=== PATIENT | female | born 1985 | race Caucasian/White ===

== ENCOUNTER 2018-06-24 22:14 | Observation (INO) | payer OTHER, SELFPAY ==
[2018-06-24 22:16] VITALS: BP 139/92; PULSE 110; RESP 17; TEMP 35.3; O2SAT 99; BMI 29.5
[2018-06-24 22:24] VITALS: BP 130/104; PULSE 106; RESP 15; O2SAT 98
[2018-06-24] MEDS: Ketorolac 30 MG/ML Syringe IV (22:50)
[2018-06-24] MEDS: 0.9% Normal Saline 1,000 ML 999 ML IV (22:51)
[2018-06-24] MEDS: Dihydroergotamine 1 MG/ML Ampul IV (22:52)
[2018-06-24] MEDS: proMETHazine 25 MG/ML Syringe 12.5 MG IV (23:12)
--- NOTE | 2018-06-24 23:44 | ED.VISSUMM ---
- ER Visit Summary Date of Service: 06/24/18 Chief Complaint: Headache History of Present Illness: The patient is a 32 F who presents with headache. She has a history of migraines. She has previously seen neurology but recently moved [place]. She has injectable Phenergan as well as Imitrex at home. Her current migraine began about 6 days ago. It was gradual onset. She rates it as 10 out of 10 but then comments that this is not the worst headache she has had that she has had worse headaches. This is typical in character and location to previous migraines. She reports aura. She has had some nausea and vomiting. No head injury. No fever. No neck pain. She was seen at another emergency department 2 days ago treated with Toradol Benadryl Phenergan. She states she had mild improvement was discharged but her headache quickly returned to its current severity. Physical Examination: Heart rate 110 vitals otherwise normal Patient sitting in a darkened room wearing sunglasses. Neck is supple, no meningismus Heart is regular rhythm tachycardia Lungs are clear Abdomen soft Alert and oriented with no focal or lateralizing neurological deficits, normal strength normal sensation Pupils equally round reactive to light Test Results: Not indicated Emergency Department Course and Treatment: She reports that this is similar to previous migraines typical in character and location. I do not believe any further diagnostic workup is necessary at this time. She was given IV Toradol, DHE, Decadron. She reported no change in symptoms and ongoing nausea. She was given IV Phenergan. On reevaluation she still continues to have severe headache without any change. I have ordered IV valproic acid. Treatment Plan: [] Disposition: Admit Impression: Intractable migraine This note was generated with [employer] dictation software. It may contain incorrect words, spelling, and punctuation that were not noted in review of the chart prior to signing ED Disposition - Plan for ED Patient: Referrals: Care Physician,No Primary [Primary Care Provider] -
--- NOTE | 2018-06-24 23:45 | HP.PCM_ITS ---
Problem List (1) Intractable migraine Status: Acute History of Present Illness Date of Admission: 06/24/18 Chief Complaint: headache The patient is a 32 year old F with a significant history of hypertension; depression; anxiety and migraine who presented with bilateral persistent temporal headache x 6 days. Associated with her symptoms is photophobia, phonophobia and aura. She reported she has aura at the right eye. Further she has nausea and vomiting. She tried home Phenergan injection; ibuprofen and Imitrex injection without any relief. She was at [facility] 2 nights ago where she was given Phenergan, Benadryl, Toradol and IV fluids but it did not help improve her symptoms. Patient reported that she use to see a neurologist at [place] but she moved to our area recently and has not seen the a neurologist or PCP yet.. She reported that previously a combination of Phenergan; Decadron, Depakote and Dilaudid helped her symptoms. She is allergic to Compazine, Reglan and morphine. At the emergency department patient received Decadron, dihydroergotamine; IV fluids and Toradol. At time of evaluation patient was having an infusion of Valproic acid running; she reported headache of 10 out of 10. She reported that she is to take propranolol for hypertension and migraine prophylaxis but she ran out of her medication and she does not have any prescription at this time. Also she does take Effexor for depression but again she has run out of her prescriptions. Past Medical History Medical History: Medical History (Last Updated 06/25/18 @ 01:01 by Stu Workman MD) Migraine G43.909 Allergies bee venom protein (honey bee) Allergy (Verified 06/24/18 22:16) Anaphylaxis ciprofloxacin [From Cipro] Allergy (Verified 06/24/18 22:16) Hives metoclopramide [From Reglan] Allergy (Verified 06/24/18 22:16) Hives morphine Allergy (Verified 06/24/18 22:16) Hives Penicillins [PCN] Allergy (Verified 06/24/18 22:16) Hives prochlorperazine [From Compazine] Allergy (Verified 06/24/18 22:16) Hives vancomycin Allergy (Verified 06/24/18 22:16) Hives Home Medications: Ambulatory Orders Medication Instructions Recorded Estradiol [Estrace] 2 mg PO DAILY 06/24/18 Ibuprofen [Motrin] 800 mg PO TID PRN PRN 06/25/18 Promethazine HCl [Phenergan] 25 mg IM Q6H PRN PRN 06/25/18 Propanolol 160 mg PO DAILY 06/25/18 Sumatriptan Succinate [Imitrex] 0.06 mg SQ Q12H PRN PRN 06/25/18 Tizanidine HCl 6 mg PO Q6H PRN PRN 06/25/18 Venlafaxine XR [Effexor Xr] 450 mg PO DAILY 06/25/18 proMETHazine tablet [Phenergan 25 mg PO Q6H PRN PRN 06/25/18 tablet] Surgical History: appendectomy, cholecystectomy, hysterectomy, tonsillectomy, - - Ulnar nerve surgery Psychiatric History: Anxiety, Depression Lives: With Family Smoking Status: Current every day smoker Tobacco Use: Cigarettes Alcohol: None - *Family History Maternal History Items: Cancer, Heart Disease, Seizures Paternal History Items: Diabetes, Heart Disease Review of Systems Constitutional: Denies: Chills, Fever, Weight Change HEENT: Reports: Head Aches. Denies: Sinus Congestion, Sinus Drainage Cardiovascular: Denies: Chest Pain, Palpitations Respiratory: Denies: Cough, Shortness of breath at rest, Sputum production Gastrointestinal: Reports: Nausea, Vomiting. Denies: Abdominal Pain Genitourinary: Denies: Dysuria Musculoskeletal: Denies: Joint Pain, Joint Tenderness Skin: Denies: Rash, Wounds Neurological: Denies: Numbness, Tingling, Focal weakness Psychiatric: Denies: Anxiety, Depression, Homicidal Ideations, Suicidal Ideations Hematologic/ Lymphatic: Denies: Easy Bruising, Easy Bleeding VTE Information - Inpt Only VTE Present on Admission: No VTE Mechan Device Prophylaxis: None VTE Pharm Prophylaxis ordered?: Yes Patient Problems: Active and Suspected Problems (Last Updated 06/25/18 @ 01:01 by Stu Workman MD) Intractable migraine (Acute) - Physical Exam General: Alert, Oriented x3, Cooperative HEENT: Atraumatic, PERRLA, EOMI, Normocephalic Neck: Supple, No JVD, Negative Carotid Bruits Lungs: Clear to auscultation, Normal air movement Cardiovascular: Regular rate, No murmurs Abdomen: Bowel Sounds Present, Soft, Non Tender Extremities: No edema, Capillary Refill Less than 3 Seconds Skin: No rashes, No breakdown Musculoskeletal: No Tenderness to Palpation of Joints or Extremities Neurological: Neuro grossly intact Psych/Mental Status: Normal Affect, Appropriate Vital Signs Temp Pulse Resp BP Pulse Ox 95.5 F L 106 H 15 130/104 H 98 06/24/18 22:16 06/24/18 22:24 06/24/18 22:24 06/24/18 22:24 06/24/18 22:24 Oxygen Delivery Method Room Air Weight: 73.301 kg Body Mass Index (BMI) 29.5 Assessment/Plan All Active Problems (Last Updated 06/25/18 @ 01:01 by Stu Workman MD) Intractable migraine (Acute) The patient is a 32 year old F with a significant history of hypertension; depression; anxiety and migraine who presented with bilateral persistent temporal headache times 6 days. Associated with her symptoms is photophobia, phonophobia and aura headache consistent with intractable migraine. Intractable migraine. Received Decadron Dihydroergotamine, Toradol, Phenergan, IV fluids and valproic acid in the emergency department. Maxalt ordered IV Zofran and Phenergan PRN. At the [facility] nurse report that patient still ahs no relief after completion of Valproic acid infusion; and after Maxalt dose. Toradol prn ordered. Ordered medications that may be considered includes Phenytoin; Keppra; Lacosamide and Decadron. Consider neurology consult if her migraine persists. Depression Patient reported that she was taking Effexor for 450 mg daily. We will re-start her on Effexor 100 mg twice daily for now. HTN Blood pressure is not within goal. Reported takes Propranolol 160mg daily which she run out. Will re-start her on propranolol 80mg daily. Tobacco abuse Counseled Declined nicotine patch. DVT prophylaxis In the setting of patient on estradiol we will put her on scheduled Lovenox while inpatient. Code Visit OBSV E&M: 35162 Initial observation care L3
[2018-06-24 23:59] VITALS: BP 120/78; PULSE 78; RESP 14; O2SAT 97
[2018-06-25 00:45] VITALS: BMI 30.4
[2018-06-25 00:47] VITALS: BP 120/77; PULSE 73; RESP 16; TEMP 36.9; O2SAT 96
[2018-06-25 00:55] LABS: Hematocrit 42.8 % (37-47); Hemoglobin 13.8 g/dl (12.0-15.0); Mean Corp Hgb Conc 32.2 g/gl (32-36); Mean Corpuscular Hgb 30.6 pg (27.0-32.0); Mean Corpuscular Volume 94.9 fL (81-99); Mean Platelet Vol. 10.2 fl (6.2-12.0); Platelet Count 249 K/mm3 (150-450); RBC Distribution Width CV 12.8 % (11.6-14.6); RBC Distribution Width SD 44.6 fl (35.1-43.9); Red Blood Count 4.51 M/mm3 (4.2-5.4); Scan Indicated on CBC? Y/N NO; White Blood Count 5.4 K/mm3 (4.4-11.0)
[2018-06-25 01:03] LABS: Anion Gap 7 (5-15); BUN 8 mg/dL (7-18); BUN/Creat Ratio 9.2 RATIO (10-20); Calcium,Total 8.6 mg/dL (8.5-10.1); Chloride 111 mmol/L (98-107); Creatinine, Serum 0.87 mg/dL (0.55-1.02); EST Glomerular Filtration Rate 79 mL/min (>60); Est Glom Filt Rate - Afr Amer 96 mL/min (>60); Estimated Creatinine Clearance 72.06 ml/min; Glucose 76 mg/dL (74-106); Potassium 3.5 mmol/L (3.5-5.1); Sodium Level 140 mmol/L (136-145)
[2018-06-25] MEDS: 0.9% NaCl Peripheral Flush Adult/Peds IV ×7 (01:16→17:35)
[2018-06-25] MEDS: Ondansetron 4 MG/2 ML Vial IV (01:18)
[2018-06-25] MEDS: Rizatriptan Benzoate 10 MG Tablet PO (01:53)
[2018-06-25] MEDS: proMETHazine 25 MG/ML Syringe 6.25 MG IV ×2 (05:30→11:40)
[2018-06-25] MEDS: Ketorolac 30 MG/ML Syringe IV ×2 (06:52→22:02)
--- NOTE | 2018-06-25 07:15 | NURSING ---
Rica GRAHAM aware that Inderal was a new order and med had not yet come to floor to be administered.
[2018-06-25 08:56] VITALS: BP 113/65; PULSE 99; RESP 18; TEMP 37.1; O2SAT 98
[2018-06-25] MEDS: Propranolol LA 80 MG Capsule PO ×2 (09:08→17:38)
[2018-06-25 11:38] VITALS: BP 123/86; PULSE 75; RESP 18; TEMP 36.9; O2SAT 98
[2018-06-25] MEDS: Enoxaparin 40 MG/0.4 ML Syringe SC (11:39)
[2018-06-25] MEDS: HYDROmorphone 1 MG/ML Syringe IV ×3 (11:41→22:02)
[2018-06-25 15:54] VITALS: BP 106/76; PULSE 80; RESP 18; TEMP 36.4; O2SAT 96
[2018-06-25] MEDS: 0.9% Normal Saline 1,000 ML 125 ML IV (17:26)
[2018-06-25] MEDS: proMETHazine 25 MG/ML Syringe IV (17:30)
[2018-06-25] MEDS: Estradiol 1 MG Tablet 2 MG PO (17:38)
[2018-06-25] MEDS: Venlafaxine XR 150 MG Capsule 300 MG PO (17:39)
--- NOTE | 2018-06-25 19:47 | PN_ITS ---
Patient Problems: Active and Suspected Problems (Last Updated 06/25/18 @ 01:01 by Stu Workman MD) Intractable migraine (Acute) Subjective: Patient was seen and examined this afternoon, I talked with her who is in the room also. Patient states that her headache is an 8 out of 10 in intensity with 10 being the highest intensity. Patient does not appear to be in any distress at the moment I am talking with her, she showed me on her cell phone what regimen she has been on in the past for acute migraines, some regime ns included IV Phenergan, ketamine, and IV Dilaudid. Today I placed the patient on IV Decadron, IV Dilaudid, and I added IV Phenergan program today. Patient states that she has been on many medications over the years for chronic migraines, she states that Neurontin did not work for her migraines, she stated that Lyrica caused weight gain, she said that Depakote did not work, Topamax did not work, she stated that initially Botox injections worked but then lost its effectiveness, she has also been on the newer agents - calcitonin gene related peptide monoclonal antibodies. She does not have a primary care doctor, she would like to hold off seeing a neurologist at this time until she can find a primary care doctor. - Physical Exam General: Alert, Oriented x3, Cooperative, No apparent distress, Well developed HEENT: Atraumatic, PERRLA, EOMI, Normocephalic Oral: Moist Mucosa Neck: Supple, No Nuchal Rigidity, Trachea Midline, Thyroid Normal Size and Texture Lungs: Clear to auscultation, Normal air movement, No rhonchi, No wheeze, No rales Cardiovascular: Regular rate, Regular Rhythm, Normal S1, Normal S2, No murmurs, No Ectopic Activity Abdomen: Bowel Sounds Present, Soft, Non Tender, Non-Distended, No hernias noted Extremities: No clubbing, No cyanosis, No edema, Capillary Refill Less than 3 Seconds Skin: No rashes, No breakdown Musculoskeletal: No Tenderness to Palpation of Joints or Extremities Neurological: Cranial nerves II-XII grossly intact, Neuro grossly intact, Sensory exam intact to light touch and pain, Coordination normal Psych/Mental Status: Normal Affect, Appropriate, Alert and oriented to time, place, person, mood and affect Vital Signs Temp Pulse Resp BP Pulse Ox 97.6 F L 80 18 106/76 96 02/19/19 15:54 06/25/18 15:54 06/25/18 15:54 06/25/18 15:54 06/25/18 15:54 Oxygen Delivery Method Room Air Weight: 75.5 kg Body Mass Index (BMI) 30.4 Intake and Output for Last 24 Hours 06/23/18 06/24/18 06/25/18 23:59 23:59 23:59 Intake Total 120 / 120 Balance 120 / 120 Laboratory Tests Past 24 Hrs 06/24/18 06/24/18 22:45 22:45 WBC 5.4 RBC 4.51 Hgb 13.8 Hct 42.8 MCV 94.9 MCH 30.6 MCHC 32.2 RDW 12.8 RDW Differential 44.6 H Plt Count 249 MPV 10.2 Sodium 140 Potassium 3.5 Chloride 111 H Carbon Dioxide 22.0 Anion Gap 7 BUN 8 Creatinine 0.87 Estim Creat Clear Calc 72.06 Est GFR (MDRD) Af Amer 96 Est GFR (MDRD) Non-Af 79 BUN/Creatinine Ratio 9.2 L Glucose 76 Calcium 8.6 Medical Necessity - Tobacco Use Smoking Status: Current every day smoker Tobacco Use: Cigarettes Assessment/Plan All Active Problems (Last Updated 06/25/18 @ 01:01 by Stu Workman MD) Intractable migraine (Acute) #1 acute intractable migraine-again patient was placed on programmed IV Phenergan today, IV Decadron, p.o. Inderal LA, and IV Dilaudid. I also placed the patient on IV fluids due to her poor oral intake. I will reassess the patient tomorrow, I told her she may need to see neurology here if she does not improve on present treatment. Code Visit OBSV E&M: 51213 Subsequent observation care L3
[2018-06-25 21:45] VITALS: BP 126/67; PULSE 90; RESP 16; TEMP 36.8; O2SAT 98
[2018-06-26] MEDS: proMETHazine 25 MG/ML Syringe IV ×5 (00:11→23:32)
[2018-06-26] MEDS: 0.9% Normal Saline 1,000 ML 125 ML IV ×4 (00:15→23:25)
[2018-06-26] MEDS: HYDROmorphone 1 MG/ML Syringe IV ×5 (02:48→20:57)
[2018-06-26 03:45] VITALS: BP 121/68; PULSE 80; RESP 16; TEMP 36.7; O2SAT 97
[2018-06-26] MEDS: Ketorolac 30 MG/ML Syringe IV (06:06)
[2018-06-26 09:54] VITALS: BP 123/67; PULSE 79; RESP 16; TEMP 36.3; O2SAT 98
[2018-06-26] MEDS: Ondansetron 4 MG/2 ML Vial IV (10:05)
[2018-06-26] MEDS: 0.9% NaCl Peripheral Flush Adult/Peds IV ×6 (10:05→23:31)
[2018-06-26] MEDS: Enoxaparin 40 MG/0.4 ML Syringe SC (11:15)
[2018-06-26] MEDS: Propranolol LA 60 MG Capsule 120 MG PO (11:16)
[2018-06-26] MEDS: Estradiol 1 MG Tablet 2 MG PO (11:16)
[2018-06-26] MEDS: Venlafaxine XR 150 MG Capsule 450 MG PO (11:16)
--- NOTE | 2018-06-26 11:22 | PCM.CONS.GEN ---
Reason for Consult Date of Consultation: 06/26/18 Reason for Consultation: STATUS MIGRANOSUS History of Present Illness: The patient is a 32 year old female with long complicated history of status migranosus treated in [place] by dr arceo and prior to that at [facility]. reports last hospitalization was june, reports at that time versed worked best according to her. moved to [place] one month ago and admits to increased stress. has been given a number of meds including stadol, intermittent ketamine infusion, nubain. currently has no doctor apparently to prescribe meds. has been on aimovig which caused worsening of underlying insomnia. was given DHE in the er to no benefit. also using imitrex and phenergan currently. current headache 01/14, typical for her including right visual aura, normal. ran out of effexor and propranolol 3 weeks ago. now restarted. med failures: wellbutrin depakote topamax aimovig gabapentin lyrica compazine reglan botox imitrex maxalt zomig seroquel fiorecet elavil pamelor in pts opinion, meds that help include dilaudid, decadron, phenergan, then second round nubain, ketamine. per admit note:The patient is a 32 year old F with a significant history of hypertension; depression; anxiety and migraine who presented with bilateral persistent temporal headache x 6 days. Associated with her symptoms is photophobia, phonophobia and aura. She reported she has aura at the right eye. Further she has nausea and vomiting. She tried home Phenergan injection; ibuprofen and Imitrex injection without any relief. She was at [facility] 2 nights ago where she was given Phenergan, Benadryl, Toradol and IV fluids but it did not help improve her symptoms. Patient reported that she use to see a neurologist at [place] but she moved to our area recently and has not seen the a neurologist or PCP yet.. She reported that previously a combination of Phenergan; Decadron, Depakote and Dilaudid helped her symptoms. She is allergic to Compazine, Reglan and morphine. At the emergency department patient received Decadron, dihydroergotamine; IV fluids and Toradol. At time of evaluation patient was having an infusion of Valproic acid running; she reported headache of 10 out of 10. She reported that she is to take propranolol for hypertension and migraine prophylaxis but she ran out of her medication and she does not have any prescription at this time. Also she does take Effexor for depression but again she has run out of her prescriptions. Past Medical History Medical History: Medical History (Last Updated 06/25/18 @ 01:01 by Stu Workman MD) Migraine G43.909 Allergies bee venom protein (honey bee) Allergy (Verified 06/24/18 22:16) Anaphylaxis ciprofloxacin [From Cipro] Allergy (Verified 06/24/18 22:16) Hives metoclopramide [From Reglan] Allergy (Verified 06/24/18 22:16) Hives morphine Allergy (Verified 06/24/18 22:16) Hives Penicillins [PCN] Allergy (Verified 06/24/18 22:16) Hives prochlorperazine [From Compazine] Allergy (Verified 06/24/18 22:16) Hives vancomycin Allergy (Verified 06/24/18 22:16) Hives Home Medications: Ambulatory Orders Medication Instructions Recorded Estradiol [Estrace] 2 mg PO DAILY 06/24/18 Ibuprofen [Motrin] 800 mg PO TID PRN PRN 06/25/18 Promethazine HCl [Phenergan] 25 mg IM Q6H PRN PRN 06/25/18 Propanolol 160 mg PO DAILY 06/25/18 Sumatriptan Succinate [Imitrex] 0.06 mg SQ Q12H PRN PRN 06/25/18 Tizanidine HCl 6 mg PO Q6H PRN PRN 06/25/18 Venlafaxine XR [Effexor Xr] 450 mg PO DAILY 06/25/18 proMETHazine tablet [Phenergan 25 mg PO Q6H PRN PRN 06/25/18 tablet] Surgical History: appendectomy, cholecystectomy, hysterectomy, tonsillectomy, - - Ulnar nerve surgery Psychiatric History: Anxiety, Depression Lives: With Family Smoking Status: Current every day smoker Tobacco Use: Cigarettes Alcohol: None - *Family History Maternal History Items: Cancer, Heart Disease, Seizures Paternal History Items: Diabetes, Heart Disease Review of Systems Constitutional: Denies: Chills, Fever, Weight Change HEENT: Denies: Head Aches, Sinus Congestion, Sinus Drainage Cardiovascular: Denies: Chest Pain, Palpitations Respiratory: Denies: Cough, Shortness of breath at rest, Sputum production Gastrointestinal: Denies: Abdominal Pain, Nausea, Vomiting Genitourinary: Denies: Dysuria Musculoskeletal: Denies: Joint Pain, Joint Tenderness Neurological: Reports: Headaches Psychiatric: Reports: Anxiety, Depression Patient Problems: Active and Suspected Problems (Last Updated 06/25/18 @ 01:01 by Stu Workman MD) Intractable migraine (Acute) - Physical Exam General: Alert, Oriented x3, Cooperative, No apparent distress HEENT: Atraumatic, PERRLA, EOMI Neurological: Cranial nerves II-XII grossly intact Psych/Mental Status: Normal Affect Vital Signs Temp Pulse Resp BP Pulse Ox 36.3 C L 79 16 123/67 H 98 06/26/18 09:54 06/26/18 09:54 06/26/18 09:54 06/26/18 09:54 06/26/18 09:54 Oxygen Delivery Method Room Air Weight: 75.5 kg Body Mass Index (BMI) 30.4 Intake and Output for Last 24 Hours 06/24/18 06/25/18 06/26/18 23:59 23:59 23:59 Intake Total 1150 / 1150 844 / 844 Output Total 500 / 500 Balance 1150 / 1150 344 / 344 Current Home Med List Medication Instructions Recorded Confirmed Type Estradiol [Estrace] 2 mg PO DAILY 06/24/18 06/25/18 History Ibuprofen [Motrin] 800 mg PO TID PRN PRN 06/25/18 06/25/18 History Promethazine HCl [Phenergan] 25 mg IM Q6H PRN PRN 06/25/18 06/25/18 History Propanolol 160 mg PO DAILY 06/25/18 06/25/18 History Sumatriptan Succinate [Imitrex] 0.06 mg SQ Q12H PRN PRN 06/25/18 06/25/18 History Tizanidine HCl 6 mg PO Q6H PRN PRN 06/25/18 06/25/18 History Venlafaxine XR [Effexor Xr] 450 mg PO DAILY 06/25/18 06/25/18 History proMETHazine tablet [Phenergan 25 mg PO Q6H PRN PRN 06/25/18 06/25/18 History tablet] Current Medications Generic Name Dose Route Start Last Admin Trade Name Freq PRN Reason Stop Dose Admin Dexamethasone Sodium Phosphate 4 mg 06/25/18 12:00 06/26/18 11:15 Decadron IV 4 mg Q6 ED Administration Enoxaparin Sodium 40 mg 06/25/18 10:00 06/26/18 11:15 Lovenox SC 40 mg DAILY@1000 ED Administration Estradiol 2 mg 06/25/18 10:00 06/26/18 11:16 Estrace (G) PO 2 mg DAILY COUNTS INCLUDE 234 BEDS AT THE [facility] Administration Hydromorphone HCl 1 mg 06/25/18 07:37 06/26/18 11:15 Dilaudid Inj IV 1 mg Q4H PRN PRN Administration HEADACHE Sodium Chloride 1,000 mls @ 125 mls/hr 06/25/18 16:05 06/26/18 07:43 IV 125 mls/hr .Q8H COUNTS INCLUDE 234 BEDS AT THE [facility] Administration Ketorolac Tromethamine 30 mg 06/25/18 06:00 06/26/18 06:06 Toradol IV 06/30/18 06:01 30 mg Q6H PRN PRN Administration PAIN Magnesium Hydroxide 30 ml 06/25/18 00:44 Milk Of Magnesia PO DAILY PRN PRN Constipation Nutritional Formula (Lactose Free) 120 ml 06/25/18 10:00 06/26/18 09:56 Ensure Enlive PO Not Given 4X/DAY COUNTS INCLUDE 234 BEDS AT THE [facility] Ondansetron HCl 4 mg 06/25/18 00:44 06/26/18 10:05 Zofran IV 4 mg Q8H PRN PRN Administration NAUSEA Promethazine HCl 25 mg 06/25/18 18:00 06/26/18 11:16 Phenergan IV 25 mg Q6 COUNTS INCLUDE 234 BEDS AT THE [facility] Administration Propranolol HCl 120 mg 06/26/18 10:00 06/26/18 11:16 Inderal La PO 120 mg DAILY COUNTS INCLUDE 234 BEDS AT THE [facility] Administration Rizatriptan Benzoate 10 mg 06/25/18 00:57 06/25/18 01:53 Maxalt PO 10 mg .[X1 PRN] PRN Administration MIGRAINE SYMPTOMS Sodium Chloride 5 - 15 ml 06/25/18 01:00 06/26/18 10:05 IV 10 ml UD PRN Administration SALINE FLUSH Venlafaxine HCl 450 mg 06/26/18 10:00 06/26/18 11:16 Effexor Xr PO 450 mg DAILY ED Administration Assessment/Plan All Active Problems (Last Updated 06/25/18 @ 01:01 by Stu Workman MD) Intractable migraine (Acute) status migranosus: mult med failures, pt insists narcotics, benzos work. stress and insomnia clearly a component. rec consult pain management dc when headache manageable so that she can follow with her outpt headache specialist in [place] avoid dhe within 24hrs of triptans continue steroids
--- NOTE | 2018-06-26 11:30 | CON.PCM_ITS ---
Reason for Consult Date of Consultation: 06/26/18 Reason for Consultation: STATUS MIGRANOSUS History of Present Illness: The patient is a 32 year old female with long complicated history of status migranosus treated in [place] by dr arceo and prior to that at [facility]. reports last hospitalization was june, reports at that time versed worked best according to her. moved to [place] one month ago and admits to increased stress. has been given a number of meds including stadol, intermittent ketamine infusion, nubain. currently has no doctor apparently to prescribe meds. has been on aimovig which caused worsening of underlying insomnia. was given DHE in the er to no benefit. also using imitrex and phenergan currently. current headache 01/14, typical for her including right visual aura, normal. ran out of effexor and propranolol 3 weeks ago. now restarted. med failures: wellbutrin depakote topamax aimovig gabapentin lyrica compazine reglan botox imitrex maxalt zomig seroquel fiorecet elavil pamelor in pts opinion, meds that help include dilaudid, decadron, phenergan, then second round nubain, ketamine. per admit note:The patient is a 32 year old F with a significant history of hypertension; depression; anxiety and migraine who presented with bilateral persistent temporal headache x 6 days. Associated with her symptoms is photophobia, phonophobia and aura. She reported she has aura at the right eye. Further she has nausea and vomiting. She tried home Phenergan injection; ibuprofen and Imitrex injection without any relief. She was at [facility] 2 nights ago where she was given Phenergan, Benadryl, Toradol and IV fluids but it did not help improve her symptoms. Patient reported that she use to see a neurologist at [place] but she moved to our area recently and has not seen the a neurologist or PCP yet.. She reported that previously a combination of Phenergan; Decadron, Depakote and Dilaudid helped her symptoms. She is allergic to Compazine, Reglan and morphine. At the emergency department patient received Decadron, dihydroergotamine; IV fluids and Toradol. At time of evaluation patient was having an infusion of Valproic acid running; she reported headache of 10 out of 10. She reported that she is to take propranolol for hypertension and migraine prophylaxis but she ran out of her medication and she does not have any prescription at this time. Also she does take Effexor for depression but again she has run out of her prescriptions. Past Medical History Medical History: Medical History (Last Updated 06/25/18 @ 01:01 by Stu Workman MD) Migraine G43.909 Allergies bee venom protein (honey bee) Allergy (Verified 06/24/18 22:16) Anaphylaxis ciprofloxacin [From Cipro] Allergy (Verified 06/24/18 22:16) Hives metoclopramide [From Reglan] Allergy (Verified 06/24/18 22:16) Hives morphine Allergy (Verified 06/24/18 22:16) Hives Penicillins [PCN] Allergy (Verified 06/24/18 22:16) Hives prochlorperazine [From Compazine] Allergy (Verified 06/24/18 22:16) Hives vancomycin Allergy (Verified 06/24/18 22:16) Hives Home Medications: Ambulatory Orders Medication Instructions Recorded Estradiol [Estrace] 2 mg PO DAILY 06/24/18 Ibuprofen [Motrin] 800 mg PO TID PRN PRN 06/25/18 Promethazine HCl [Phenergan] 25 mg IM Q6H PRN PRN 06/25/18 Propanolol 160 mg PO DAILY 06/25/18 Sumatriptan Succinate [Imitrex] 0.06 mg SQ Q12H PRN PRN 06/25/18 Tizanidine HCl 6 mg PO Q6H PRN PRN 06/25/18 Venlafaxine XR [Effexor Xr] 450 mg PO DAILY 06/25/18 proMETHazine tablet [Phenergan 25 mg PO Q6H PRN PRN 06/25/18 tablet] Surgical History: appendectomy, cholecystectomy, hysterectomy, tonsillectomy, - - Ulnar nerve surgery Psychiatric History: Anxiety, Depression Lives: With Family Smoking Status: Current every day smoker Tobacco Use: Cigarettes Alcohol: None - *Family History Maternal History Items: Cancer, Heart Disease, Seizures Paternal History Items: Diabetes, Heart Disease Review of Systems Constitutional: Denies: Chills, Fever, Weight Change HEENT: Denies: Head Aches, Sinus Congestion, Sinus Drainage Cardiovascular: Denies: Chest Pain, Palpitations Respiratory: Denies: Cough, Shortness of breath at rest, Sputum production Gastrointestinal: Denies: Abdominal Pain, Nausea, Vomiting Genitourinary: Denies: Dysuria Musculoskeletal: Denies: Joint Pain, Joint Tenderness Neurological: Reports: Headaches Psychiatric: Reports: Anxiety, Depression Patient Problems: Active and Suspected Problems (Last Updated 06/25/18 @ 01:01 by Stu Workman MD) Intractable migraine (Acute) - Physical Exam General: Alert, Oriented x3, Cooperative, No apparent distress HEENT: Atraumatic, PERRLA, EOMI Neurological: Cranial nerves II-XII grossly intact Psych/Mental Status: Normal Affect Vital Signs Temp Pulse Resp BP Pulse Ox 36.3 C L 79 16 123/67 H 98 06/26/18 09:54 06/26/18 09:54 06/26/18 09:54 06/26/18 09:54 06/26/18 09:54 Oxygen Delivery Method Room Air Weight: 75.5 kg Body Mass Index (BMI) 30.4 Intake and Output for Last 24 Hours 06/24/18 06/25/18 06/26/18 23:59 23:59 23:59 Intake Total 1150 / 1150 844 / 844 Output Total 500 / 500 Balance 1150 / 1150 344 / 344 Current Home Med List Medication Instructions Recorded Confirmed Type Estradiol [Estrace] 2 mg PO DAILY 06/24/18 06/25/18 History Ibuprofen [Motrin] 800 mg PO TID PRN PRN 06/25/18 06/25/18 History Promethazine HCl [Phenergan] 25 mg IM Q6H PRN PRN 06/25/18 06/25/18 History Propanolol 160 mg PO DAILY 06/25/18 06/25/18 History Sumatriptan Succinate [Imitrex] 0.06 mg SQ Q12H PRN PRN 06/25/18 06/25/18 History Tizanidine HCl 6 mg PO Q6H PRN PRN 06/25/18 06/25/18 History Venlafaxine XR [Effexor Xr] 450 mg PO DAILY 06/25/18 06/25/18 History proMETHazine tablet [Phenergan 25 mg PO Q6H PRN PRN 06/25/18 06/25/18 History tablet] Current Medications Generic Name Dose Route Start Last Admin Trade Name Freq PRN Reason Stop Dose Admin Dexamethasone Sodium Phosphate 4 mg 06/25/18 12:00 06/26/18 11:15 Decadron IV 4 mg Q6 ED Administration Enoxaparin Sodium 40 mg 06/25/18 10:00 06/26/18 11:15 Lovenox SC 40 mg DAILY@1000 ED Administration Estradiol 2 mg 06/25/18 10:00 06/26/18 11:16 Estrace (G) PO 2 mg DAILY [facility] Administration Hydromorphone HCl 1 mg 06/25/18 07:37 06/26/18 11:15 Dilaudid Inj IV 1 mg Q4H PRN PRN Administration HEADACHE Sodium Chloride 1,000 mls @ 125 mls/hr 06/25/18 16:05 06/26/18 07:43 IV 125 mls/hr .Q8H [facility] Administration Ketorolac Tromethamine 30 mg 06/25/18 06:00 06/26/18 06:06 Toradol IV 06/30/18 06:01 30 mg Q6H PRN PRN Administration PAIN Magnesium Hydroxide 30 ml 06/25/18 00:44 Milk Of Magnesia PO DAILY PRN PRN Constipation Nutritional Formula (Lactose Free) 120 ml 06/25/18 10:00 06/26/18 09:56 Ensure Enlive PO Not Given 4X/DAY [facility] Ondansetron HCl 4 mg 06/25/18 00:44 06/26/18 10:05 Zofran IV 4 mg Q8H PRN PRN Administration NAUSEA Promethazine HCl 25 mg 06/25/18 18:00 06/26/18 11:16 Phenergan IV 25 mg Q6 [facility] Administration Propranolol HCl 120 mg 06/26/18 10:00 06/26/18 11:16 Inderal La PO 120 mg DAILY [facility] Administration Rizatriptan Benzoate 10 mg 06/25/18 00:57 06/25/18 01:53 Maxalt PO 10 mg .[X1 PRN] PRN Administration MIGRAINE SYMPTOMS Sodium Chloride 5 - 15 ml 06/25/18 01:00 06/26/18 10:05 IV 10 ml UD PRN Administration SALINE FLUSH Venlafaxine HCl 450 mg 06/26/18 10:00 06/26/18 11:16 Effexor Xr PO 450 mg DAILY ED Administration Assessment/Plan All Active Problems (Last Updated 06/25/18 @ 01:01 by Stu Workman MD) Intractable migraine (Acute) status migranosus: mult med failures, pt insists narcotics, benzos work. stress and insomnia clearly a component. rec consult pain management dc when headache manageable so that she can follow with her outpt headache specialist in [place] avoid dhe within 24hrs of triptans continue steroids
[2018-06-26 14:51] VITALS: BP 124/82; PULSE 82; RESP 14; TEMP 36.7; O2SAT 96
--- NOTE | 2018-06-26 19:44 | PCM.PROGNOTE ---
Subjective: Patient was seen and examined today, earlier this morning her headache was still a 7 out of 10, I had neurology see the patient and they did not have anything substantial to add and recommended continuing her present medications, they recommended possibly pain management for a nerve block-patient refused at this time and would like to continue her present medications. - Physical Exam General: Alert, Oriented x3, Cooperative, No apparent distress, Well developed HEENT: Atraumatic, PERRLA, EOMI, Normocephalic Oral: Moist Mucosa Neck: Supple, No JVD, No Nuchal Rigidity, Trachea Midline, Thyroid Normal Size and Texture Lungs: Clear to auscultation, Normal air movement, No rhonchi, No wheeze, No rales Cardiovascular: Regular rate, Regular Rhythm, Normal S1, Normal S2, No murmurs, No Ectopic Activity Abdomen: Bowel Sounds Present, Soft, Non Tender, Non-Distended Extremities: No clubbing, No cyanosis, No edema, Capillary Refill Less than 3 Seconds Skin: No rashes, No breakdown Musculoskeletal: No Tenderness to Palpation of Joints or Extremities Neurological: Cranial nerves II-XII grossly intact, Neuro grossly intact, Muscle tone normal, Sensory exam intact to light touch and pain Psych/Mental Status: Normal Affect, Appropriate, Alert and oriented to time, place, person, mood and affect Vital Signs Temp Pulse Resp BP Pulse Ox 98.1 F 82 14 124/82 H 96 06/26/18 14:51 06/26/18 14:51 06/26/18 14:51 06/26/18 14:51 06/26/18 14:51 Oxygen Delivery Method Room Air Weight: 75.5 kg Body Mass Index (BMI) 30.4 Intake and Output for Last 24 Hours 06/24/18 06/25/18 06/26/18 23:59 23:59 23:59 Intake Total 1150 / 1150 2539 / 2539 Output Total 2300 / 2300 Balance 1150 / 1150 239 / 239 Medical Necessity - Tobacco Use Smoking Status: Current every day smoker Tobacco Use: Cigarettes Assessment/Plan All Active Problems (Last Updated 06/25/18 @ 01:01 by Stu Workman MD) Intractable migraine (Acute) #1 acute intractable migraine-continue present medications, reevaluate patient tomorrow Code Visit OBSV E&M: 21925 Subsequent observation care L2
[2018-06-26 20:52] VITALS: BP 132/82; PULSE 79; RESP 16; TEMP 36.3; O2SAT 94
[2018-06-26] MEDS: DiphenhydrAMINE 25 MG Capsule 50 MG PO (20:56)
[2018-06-27 02:30] VITALS: BP 140/87; PULSE 72; RESP 16; TEMP 36.7; O2SAT 97
[2018-06-27] MEDS: 0.9% NaCl Peripheral Flush Adult/Peds IV ×4 (02:31→08:41)
[2018-06-27] MEDS: HYDROmorphone 1 MG/ML Syringe IV ×3 (02:32→10:58)
[2018-06-27] MEDS: proMETHazine 25 MG/ML Syringe IV (06:03)
[2018-06-27] MEDS: 0.9% Normal Saline 1,000 ML 125 ML IV (06:15)
[2018-06-27 08:30] VITALS: BP 146/93; PULSE 68; RESP 16; TEMP 36.4; O2SAT 98
[2018-06-27] MEDS: Estradiol 1 MG Tablet 2 MG PO (08:40)
[2018-06-27] MEDS: Venlafaxine XR 150 MG Capsule 450 MG PO (08:40)
[2018-06-27] MEDS: Propranolol LA 60 MG Capsule 120 MG PO (08:41)
[2018-06-27] MEDS: Ondansetron 4 MG/2 ML Vial IV (08:41)
[2018-06-27] MEDS: Enoxaparin 40 MG/0.4 ML Syringe SC (08:41)
--- NOTE | 2018-06-27 10:38 | DCINST_ITS ---
- Discharge Diagnoses Current Active Problems: Current Active and Chronic Problems (Last Updated 06/25/18 @ 01:01 by Stu Workman MD) Intractable migraine (Acute) You will use the following diet at home:: No restrictions Your liquids should be the consistency of: Regular/Thin Discharge Activity: Return to Normal Activity Weight Bearing Status: Full weight bearing Allergies/Adverse Reactions: Allergies bee venom protein (honey bee) Allergy (Verified 06/24/18 22:16) Anaphylaxis ciprofloxacin [From Cipro] Allergy (Verified 06/24/18 22:16) Hives metoclopramide [From Reglan] Allergy (Verified 06/24/18 22:16) Hives morphine Allergy (Verified 06/24/18 22:16) Hives Penicillins [PCN] Allergy (Verified 06/24/18 22:16) Hives prochlorperazine [From Compazine] Allergy (Verified 06/24/18 22:16) Hives vancomycin Allergy (Verified 06/24/18 22:16) Hives Medications to take at Discharge Estradiol [Estrace] 2 mg PO DAILY 06/24/18 Ibuprofen [Motrin] 800 mg PO TID PRN PRN 06/25/18 Promethazine HCl [Phenergan] 25 mg IM Q6H PRN PRN 06/25/18 Sumatriptan Succinate [Imitrex] 0.06 mg SQ Q12H PRN PRN 06/25/18 Tizanidine HCl 6 mg PO Q6H PRN PRN 06/25/18 Venlafaxine XR [Effexor Xr] 450 mg PO DAILY 06/25/18 proMETHazine tablet [Phenergan tablet] 25 mg PO Q6H PRN PRN 06/25/18 DiphenhydrAMINE [Benadryl] 50 mg PO Q6H PRN PRN capsule 06/27/18 HYDROmorphone tablet [Dilaudid] 1 - 1.5 mg PO Q6H PRN PRN #30 tablet 06/27/18 Prednisone 10 mg PO UD #30 tab 06/27/18 Propranolol HCl [Inderal LA (Beta Amanda)] 120 mg PO DAILY #60 capsule 06/27/18 Rizatriptan Benzoate [Maxalt] 10 mg PO .[X1 PRN] PRN tablet 06/27/18 Venlafaxine XR [Effexor Xr] 450 mg PO DAILY #90 capsule 06/27/18 The following prescriptions were given: HYDROmorphone tablet [Dilaudid] 1 - 1.5 mg PO Q6H PRN PRN #30 tablet PRN Reason: Migraine Symptoms Prednisone 10 mg PO UD #30 tab Propranolol HCl [Inderal LA (Beta Amanda)] 120 mg PO DAILY #60 capsule Venlafaxine XR [Effexor Xr] 450 mg PO DAILY #90 capsule Primary Care Physician: Care Physician,No Primary [Primary Care Provider] - Please follow up with your Primary Care Physician in: in 2-3 weeks Test Results: Test results from this visit will be discussed in further detail at your follow- up appointment, if applicable. Please Follow Up With: your neurologist in 5-7 days
--- NOTE | 2018-06-30 18:58 | PCM.DC.SUM ---
Discharge Date and Diagnosis Date of Admission: 06/24/18 Date of Discharge: 06/27/18 - Primary Discharge Diagnosis #1 acute intractable migraine Hospital Course and Treatment Operations: None Procedures: None Summary of Care Provided: The patient is a 32 year old F seen in the emergency room at [facility] with a chief complaint of intractable migraine headache. Patient has had a history of migraine headaches and was living down around [facility] and recently moved into [place]. She states she had been resistant to many migraine medications and sees a neurologist in [facility]. While in the emergency room, patient received several medications for acute migraine but her migraine headache persisted. Patient was placed and observation status on MedSurg 3, she was given IV Phenergan, IV Dilaudid, and IV Decadron. She was seen in consultation by neurology who did not have any additional medications to add to the patient's care. Patient's migraine improved while she was hospitalized. On 06/27/18, patient was seen and examined: Physical exam-on examination she appeared in good health and spirits. Vital signs as documented. Skin warm and dry and without overt rashes. Neck without JVD. Lungs clear. Heart exam notable for regular rhythm, normal sounds and absence of murmurs, rubs or gallops. Abdomen unremarkable and without evidence of organomegaly, masses, or abdominal aortic enlargement. Extremities nonedematous. Neuro: Cranial nerves II through XII are grossly intact, no focal motor deficits were noted, sensation to light touch and pinprick is intact. Psych: Patient is alert and oriented x3, she does not appear anxious or depressed On 06/27/18, patient was seen and examined and discharged to home in stable condition - Physical Exam Vital Signs Temp Pulse Resp BP Pulse Ox 97.5 F L 68 16 146/93 H 98 06/27/18 08:30 06/27/18 08:30 06/27/18 08:30 06/27/18 08:30 06/27/18 08:30 Oxygen Delivery Method Room Air Weight: 75.5 kg Body Mass Index (BMI) 30.4 Discharge Activity: Return to Normal Activity Weight Bearing Status: Full weight bearing Home Medications: Medications to take at Discharge Estradiol [Estrace] 2 mg PO DAILY 06/24/18 Ibuprofen [Motrin] 800 mg PO TID PRN PRN 06/25/18 Promethazine HCl [Phenergan] 25 mg IM Q6H PRN PRN 06/25/18 Sumatriptan Succinate [Imitrex] 0.06 mg SQ Q12H PRN PRN 06/25/18 Tizanidine HCl 6 mg PO Q6H PRN PRN 06/25/18 Venlafaxine XR [Effexor Xr] 450 mg PO DAILY 06/25/18 proMETHazine tablet [Phenergan tablet] 25 mg PO Q6H PRN PRN 06/25/18 DiphenhydrAMINE [Benadryl] 50 mg PO Q6H PRN PRN capsule 06/27/18 HYDROmorphone tablet [Dilaudid] 1 - 1.5 mg PO Q6H PRN PRN #30 tablet 06/27/18 Prednisone 10 mg PO UD #30 tab 06/27/18 Propranolol HCl [Inderal LA (Beta Amanda)] 120 mg PO DAILY #60 capsule 06/27/18 Rizatriptan Benzoate [Maxalt] 10 mg PO .[X1 PRN] PRN tablet 06/27/18 Venlafaxine XR [Effexor Xr] 450 mg PO DAILY #90 capsule 06/27/18 Following Prescrptions Were Given to Patient: HYDROmorphone tablet [Dilaudid] 1 - 1.5 mg PO Q6H PRN PRN #30 tablet PRN Reason: Migraine Symptoms Prednisone 10 mg PO UD #30 tab Propranolol HCl [Inderal LA (Beta Amanda)] 120 mg PO DAILY #60 capsule Venlafaxine XR [Effexor Xr] 450 mg PO DAILY #90 capsule Primary Care Physician: Care Physician,No Primary [Primary Care Provider] - Please follow up with your Primary Care Physician in: in 2-3 weeks Please Follow Up With: your neurologist in 5-7 days Disposition: Home Minutes spent on discharge:: 30 Patient Condition:: Stable Medical Necessity - Tobacco Use Smoking Status: Current every day smoker Tobacco Use: Cigarettes Meaningful Use Info Meaningful Use Diagnoses (Choose all that apply): None applicable Code Visit OBSV E&M: 83972 Observation care discharge
--- NOTE | 2018-06-30 19:01 | DS.PCM_ITS ---
Discharge Date and Diagnosis Date of Admission: 06/24/18 Date of Discharge: 06/27/18 - Primary Discharge Diagnosis #1 acute intractable migraine Hospital Course and Treatment Operations: None Procedures: None Summary of Care Provided: The patient is a 32 year old F seen in the emergency room at [facility] with a chief complaint of intractable migraine headache. Patient has h ad a history of migraine headaches and was living down around [facility] and recently moved into [place]. She states she had been resistant to many migraine medications and sees a neurologist in [facility]. While in the emergency room, patient received several medications for acute migraine but her migraine headache persisted. Patient was placed and observation status on MedSurg 3, she was given IV Phenergan, IV Dilaudid, and IV Decadron. She was seen in consultation by neurology who did not have any additional medications to add to the patient's care. Patient's migraine improved while she was hospitalized. On 06/27/18, patient was seen and examined: Physical exam-on examination she appeared in good health and spirits. Vital signs as documented. Skin warm and dry and without overt rashes. Neck without JVD. Lungs clear. Heart exam notable for regular rhythm, normal sounds and absence of murmurs, rubs or gallops. Abdomen unremarkable and without evidence of organomegaly, masses, or abdominal aortic enlargement. Extremities nonedematous. Neuro: Cranial nerves II through XII are grossly intact, no focal motor deficits were noted, sensation to light touch and pinprick is intact. Psych: Patient is alert and oriented x3, she does not appear anxious or depressed On 06/27/18, patient was seen and examined and discharged to home in stable condition - Physical Exam Vital Signs Temp Pulse Resp BP Pulse Ox 97.5 F L 68 16 146/93 H 98 06/27/18 08:30 06/27/18 08:30 06/27/18 08:30 06/27/18 08:30 06/27/18 08:30 Oxygen Delivery Method Room Air Weight: 75.5 kg Body Mass Index (BMI) 30.4 Discharge Activity: Return to Normal Activity Weight Bearing Status: Full weight bearing Home Medications: Medications to take at Discharge Estradiol [Estrace] 2 mg PO DAILY 06/24/18 Ibuprofen [Motrin] 800 mg PO TID PRN PRN 06/25/18 Promethazine HCl [Phenergan] 25 mg IM Q6H PRN PRN 06/25/18 Sumatriptan Succinate [Imitrex] 0.06 mg SQ Q12H PRN PRN 06/25/18 Tizanidine HCl 6 mg PO Q6H PRN PRN 06/25/18 Venlafaxine XR [Effexor Xr] 450 mg PO DAILY 06/25/18 proMETHazine tablet [Phenergan tablet] 25 mg PO Q6H PRN PRN 06/25/18 DiphenhydrAMINE [Benadryl] 50 mg PO Q6H PRN PRN capsule 06/27/18 HYDROmorphone tablet [Dilaudid] 1 - 1.5 mg PO Q6H PRN PRN #30 tablet 06/27/18 Prednisone 10 mg PO UD #30 tab 06/27/18 Propranolol HCl [Inderal LA (Beta Amanda)] 120 mg PO DAILY #60 capsule 06/27/18 Rizatriptan Benzoate [Maxalt] 10 mg PO .[X1 PRN] PRN tablet 06/27/18 Venlafaxine XR [Effexor Xr] 450 mg PO DAILY #90 capsule 06/27/18 Following Prescrptions Were Given to Patient: HYDROmorphone tablet [Dilaudid] 1 - 1.5 mg PO Q6H PRN PRN #30 tablet PRN Reason: Migraine Symptoms Prednisone 10 mg PO UD #30 tab Propranolol HCl [Inderal LA (Beta Amanda)] 120 mg PO DAILY #60 capsule Venlafaxine XR [Effexor Xr] 450 mg PO DAILY #90 capsule Primary Care Physician: Care Physician,No Primary [Primary Care Provider] - Please follow up with your Primary Care Physician in: in 2-3 weeks Please Follow Up With: your neurologist in 5-7 days Disposition: Home Minutes spent on discharge:: 30 Patient Condition:: Stable Medical Necessity - Tobacco Use Smoking Status: Current every day smoker Tobacco Use: Cigarettes Meaningful Use Info Meaningful Use Diagnoses (Choose all that apply): None applicable Code Visit OBSV E&M: 98392 Observation care discharge
== END 2018-06-27 11:34 | disposition home or self-care (01) ==
LOC: ED 22:57 → MS3 06-25 00:07
PROVIDERS: Admitting Provider Hospitalist; Emergency Provider Emergency Medicine; Visit Provider Internal Medicine
DX: G43.919 Migraine, unspecified, intractable, without status migrainosus (principal); F17.210 Nicotine dependence, cigarettes, uncomplicated; I10 Essential (primary) hypertension; F41.9 Anxiety disorder, unspecified; F32.9 Major depressive disorder, single episode, unspecified; Z79.899 Other long term (current) drug therapy; Z79.82 Long term (current) use of aspirin; Z79.84 Long term (current) use of oral hypoglycemic drugs; Z79.02 Long term (current) use of antithrombotics/antiplatelets
CPT/HCPCS: 80048; 85027; 96361; 96365; 96372; 96375; 96376; 97802; 99218; 99282; 99406; J7030; A4216; G0378; J1110; J2405

== ENCOUNTER 2019-12-17 14:00 | Emergency (ER) | payer OTHER, MEDICAID, SELFPAY ==
[2018-06-25 00:45] VITALS: BMI 30.4
[2019-12-17 14:01] VITALS: BP 137/98; PULSE 75; RESP 15; TEMP 36.6; O2SAT 100; BMI 25.4
--- NOTE | 2019-12-17 14:10 | ED.VIS.GEN ---
History of Present Illness Chief Complaint: Allergic Reaction Informant: Patient Narrative: 34-year-old female with history of anaphylaxis due to bee sting presents after giving herself 2 doses of epinephrine for a bee sting which happened about 30 minutes prior to arrival. She states she took a second epinephrine pen because she felt like her throat was closing. She states that she feels much improved now. She states other than the throat closure she did not have any rash. She states she did not have any wheezing. She denies abdominal pain. Prior to this she was otherwise healthy. Past Medical History - Allergies and Home Meds Allergies/Adverse Reactions: Allergies bee venom protein (honey bee) Allergy (Verified 12/17/19 14:01) Anaphylaxis ciprofloxacin [From Cipro] Allergy (Verified 12/17/19 14:01) Hives metoclopramide [From Reglan] Allergy (Verified 12/17/19 14:01) Hives morphine Allergy (Verified 12/17/19 14:01) Hives Penicillins [PCN] Allergy (Verified 12/17/19 14:01) Hives prochlorperazine [From Compazine] Allergy (Verified 12/17/19 14:01) Hives vancomycin Allergy (Verified 12/17/19 14:01) Hives Primary Care Physician: Care Physician,No Primary [NON-STAFF] - Surgical History: appendectomy, cholecystectomy, hysterectomy, tonsillectomy, - - Ulnar nerve surgery Lives: With Family Smoking Status: Current every day smoker - Family History Maternal Family History: Reports: Cancer, Heart Disease, Seizures Paternal Family History: Reports: Diabetes, Heart Disease Review of Systems General: Denies: Chills, Fever, Sweats Eyes: Denies: Visual changes - bilaterally, Diplopia ENT: Reports: - - Throat tightening. Denies: Rhinorrhea Cardiovascular: Denies: Chest pain, Palpitations Respiratory: Denies: Dyspnea, Cough, Dyspnea on exertion Gastrointestinal: Denies: Abdominal pain, Nausea, Vomiting, Diarrhea, Melena, Hematochezia Musculoskeletal: Denies: Myalgias, Arthralgias Skin: Denies: Rash Neurological: Denies: Headache, Weakness Psych: Denies: Depression, Anxiety - Physical Exam Vital Signs/Narrative: Vital Signs Temp Pulse Resp BP Pulse Ox 12/17/19 14:01 97.8 F 75 15 137/98 H 100 Inital Vital Signs reviewed: Yes General: Well nourished, No Acute Distress Head: Normocephalic, Atraumatic Eyes: Perrl ENT: Moist mucous membranes Neck: Supple, - - No stridor Cardiovascular: Regular rate, Regular rhythm Respiratory: No distress, CTA bilaterally Abdomen: Soft, Nontender Back: Normal Inspection Extremities: No edema Skin: Normal color, No rash, Pallor Neurological: Oriented x3 Psychological: Normal affect Diagnostic/Tx/Re-eval - Medical Decision Making She presented with allergic reaction to a bee sting. She stated she felt like her throat was tightening. She took 2 doses of epi prior to arrival. On examination she has no stridor. She has no rash. There is no other signs or symptoms. She states she feels improved after taking her EpiPen. I did give her Solu-Medrol, Benadryl, Pepcid as well as IV fluids. She has been reevaluated and she has an stable return of allergic reaction. Vital signs are stable. Patient will be signed out to incoming ED physician for monitoring for 1 more hour. I did send her prescriptions to the pharmacy for prednisone that she will take as needed. She has a refill on her EpiPen as well. Impression: 1. Bee sting 2. Anaphylaxis ED Disposition - Plan for ED Patient: Disposition: Home or Assisted Living Instructions: ED BEE STING General Allergic Rxn, ED Anaphylaxis General Prescriptions: Epi Pen (for allergic rxn) 0.3 mg IM X1 PRN #1 syringe PRN Reason: Anaphylaxis Prescription Printed Prednisone 10 mg PO UD #30 tab Prescription Printed Referrals: Care Physician,No Primary [NON-STAFF] -
[2019-12-17] MEDS: MethylPREDNISolone 125 MG/2 ML Vial IV (14:15)
[2019-12-17] MEDS: DiphenhydrAMINE 50 MG/ML Syringe IV (14:18)
[2019-12-17] MEDS: 0.9% Normal Saline 1,000 ML 999 ML IV (14:19)
[2019-12-17 14:25] VITALS: BP 127/80; PULSE 50; RESP 16; O2SAT 99
[2019-12-17] MEDS: Famotidine 200 MG/20 ML MDV 20 MG in 0.9% Normal Saline (Pres. free 8 ML 300 MG IV (14:26)
[2019-12-17 15:26] VITALS: BP 117/82; PULSE 71; RESP 14; O2SAT 98
[2019-12-17 16:13] VITALS: BP 124/84; PULSE 77; RESP 23; O2SAT 97
[2019-12-17 17:37] VITALS: O2SAT 99
[2019-12-17 18:17] VITALS: BP 123/68; PULSE 75; RESP 22; O2SAT 98
== END 2019-12-17 18:21 | disposition home or self-care (01) ==
PROVIDERS: Emergency Provider Student in an Organized Health Care Education/Training Program; PCP Family Medicine
DX: T63.441A Toxic effect of venom of bees, accidental (unintentional), initial encounter (principal); T78.2XXA Anaphylactic shock, unspecified, initial encounter; X58.XXXA Exposure to other specified factors, initial encounter; F17.200 Nicotine dependence, unspecified, uncomplicated; Z88.0 Allergy status to penicillin; Z88.1 Allergy status to other antibiotic agents; Z88.8 Allergy status to other drugs, medicaments and biological substances; Z79.899 Other long term (current) drug therapy; Z90.710 Acquired absence of both cervix and uterus; Z90.49 Acquired absence of other specified parts of digestive tract
CPT/HCPCS: 96365; 96375; 99283; J7030; A4216; J3490

== ENCOUNTER → 2020-01-13 15:49 | Outpatient (CLI) | payer OTHER, SELFPAY ==
[2019-12-17 14:01] VITALS: BMI 25.4
--- NOTE | 2020-01-13 15:51 | RAD_ITS ---
STUDY: X-RAY - UNILATERAL RIBS ( LEFT ) REASON FOR EXAM: Female, 34 years old. PATIENT FELL AND HIT A CHAIR LAST YVROSE. PAIN LEFT RIBS LATERALLY MID TO LOWER. TECHNIQUE: 4 view(s) of the ribs. COMPARISON: None. FINDINGS: There appears to be nondisplaced fracture of the tip of the left ninth rib. No other definite ribs are seen. Lungs show widespread tiny granulomas. RAD/Ribs Unil 2V No CXR IMPRESSION: Probable nondisplaced fracture of the tip of the left ninth rib. Electronically Signed: Juancarlos Rodriguez MD at 16:15 EDT , Service support ,
== END ==
PROVIDERS: PCP Family Medicine; Referring Provider Nurse Practitioner Family; Visit Provider Nurse Practitioner Family
DX: R07.81 Pleurodynia (principal)
CPT/HCPCS: 71100

== ENCOUNTER → 2021-02-24 14:13 | Outpatient (CLI) | payer OTHER, SELFPAY ==
--- NOTE | 2021-02-24 14:36 | CT_ITS ---
STUDY: CT ABDOMEN AND PELVIS WITHOUT CONTRAST REASON FOR EXAM: Female, 35 years old. LOW BACK PAIN RADIATION DOSAGE (If Supplied By Facility): CTDIvol = ( 8.19 ) mGy, DLP = ( 395.33 ) mGycm TECHNIQUE: Transaxial images were obtained from the dome of the diaphragm to the symphysis pubis without oral contrast, and without intravenous contrast. Sagittal and coronal images were reconstructed. Individualized dose optimization techniques were used for this CT. COMPARISON: None. FINDINGS: Scattered calcified granulomas at the lung bases. The visualized portions of the heart are within normal limits. Normal liver. There are surgical clips in the gallbladder fossa consistent with a prior cholecystectomy. Normal spleen. Normal pancreas. Normal bilateral adrenal glands. Normal right kidney. Normal left kidney. Normal visualized stomach. Normal small intestine. Normal colon. There are surgical clips in the region of the appendix consistent with a prior appendectomy. Normal abdominal aorta. Normal inferior vena cava. Normal retroperitoneum. Normal urinary bladder. There is absence of the uterus consistent with a prior hysterectomy. Normal abdominal wall. Normal osseous structures. CT/Abdomen/Pelvis without Cont IMPRESSION: No acute abnormality is seen. Electronically Signed: Parker Horn MD at 15:05 EDT , Service support ,
== END ==
PROVIDERS: PCP Family Medicine; Referring Provider Nurse Practitioner Family; Visit Provider Nurse Practitioner Family
DX: M54.50 Low back pain, unspecified (principal)
CPT/HCPCS: 74176

== ENCOUNTER 2024-01-13 18:19 | Emergency (ER) | payer OTHER, SELFPAY ==
[2024-01-13] VITALS (8 sets, daily range): BP systolic 90–113; BP diastolic 58–82; PULSE 65–79; RESP 11–20; TEMP 36–36.7; O2SAT 95–100; BMI 27.1
--- NOTE | 2024-01-13 18:38 | EKG12_ITS ---
Test Reason : DYSRHYTHMIA Blood Pressure : / mmHG Vent. Rate : 071 BPM Atrial Rate : 071 BPM P-R Int : 124 ms QRS Dur : 090 ms QT Int : 414 ms P-R-T Axes : 013 003 -28 degrees QTc Int : 449 ms Normal sinus rhythm Nonspecific T wave abnormality Abnormal ECG Confirmed by BACILIO MCCALLUM, ALISON ([id number]), editor producer JUAN ALBERTO MAC ([id number]) on 01/14/2024 2:46:29 PM Referred By: Confirmed By:ALISON RIBERA MD
--- NOTE | 2024-01-13 18:39 | EDS_ITS ---
HPI History of Present Illness Chief Complaint: Syncope Detail of Chief Complaint[place]. Informant: patient Onset/Context/Timing Onset: Today Context: Gradual Onset Timing: Continuous Current Severity: Mild Maximum Severity: Moderate Narrative Narrative: 38-year-old female history of kidney stones, migraine headaches, mitral valve prolapse and treated for hypertension with Inderal. Also history of depression. 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 They are walking to the fair today. She has had recent nausea and vomiting last several days and twice today. [place] lightheaded like she might pass out. No headache. No chest pain. No shortness of breath. No melena or diarrhea. She has chronic history of issues with kidney stone. She is currently being evaluated for a left flank stone by her urologist in [place]. Prior similar symptoms: Yes Recent Illness/Hospitalization: No PFSH [facility] Medical History Migraine Home Medications ?Medication ?Instructions ?Recorded ?Last Taken ?Type promethazine 25 mg/mL injection 25 mg IM Q6H PRN PRN migraines 06/25/18 06/24/18 10:00 History solution (Phenergan) epinephrine 0.3 mg/0.3 mL 0.3 mg (0.3 mL) IM X1 PRN 12/17/19 Unknown Rx injection, auto-injector Anaphylaxis ##1 nitrofurantoin 100 mg PO Q12H 7 days #14 caps 01/13/24 Unknown Rx monohydrate/macrocrystals 100 mg capsule (Macrobid) propranolol 160 mg capsule,24 160 mg PO DAILY 01/13/24 Unknown History hr,extended release venlafaxine 150 mg 300 mg PO DAILY 01/13/24 Unknown History capsule,extended release 24 hr Allergy/AdvReac Type Severity Reaction Status Date / Time bee venom protein (honey bee) Allergy Anaphylaxis Verified 01/13/24 18:25 ciprofloxacin (From Cipro) Allergy Hives Verified 01/13/24 18:25 metoclopramide (From Reglan) Allergy Hives Verified 01/13/24 18:25 morphine Allergy Hives Verified 01/13/24 18:25 Penicillins (PCN) Allergy Hives Verified 01/13/24 18:25 prochlorperazine (From Allergy Hives Verified 01/13/24 18:25 Compazine) vancomycin Allergy Hives Verified 01/13/24 18:25 Social History Smoking Status: Current every day smoker tobacco type: e-cigarettes ROS ROS ED ROS Narrative Nausea and vomiting. Near syncope. Constitutional Constitutional ED: Denies chills or fever(s) Eyes Eyes: Denies blurry vision ENT ENT ED: Denies ear pain Cardiovascular Cardiovascular: Denies chest pain Respiratory/Chest Respiratory/Chest: Denies cough, dyspnea or dyspnea on exertion Gastrointestinal Gastrointestinal: Reports nausea and vomiting; Denies abdominal pain, constipation, diarrhea or melena Genitourinary Genitourinary ED: Denies dysuria or hematuria Musculoskeletal Musculoskeletal: Denies arthralgias or back pain Integumentary Denies abscess or Abrasions Neurologic Neurologic: Denies headache(s) Psychiatric Psychiatric: Denies anxiety Endocrine Endocrinology: Denies cold intolerance Hematologic/Lymphatic Hematologic/Lymphatic: Reports none Allergic/Immunologic Allergic/Immunologic ED: Denies mouth swelling, tongue swelling or urticaria EXAM Physical Exam Narrative Exam Narrative: 38-year-old female no acute distress vital signs stable afebrile. Initial blood pressure 113/82. Currently 99/70. Pulse ox 100% on room air no signs hypoxia. H EENT exam unremarkable. Pupils round react to light. Mildly dry mucous membranes. Neck nontender. Lungs clear. Heart regular rhythm rate about 70 no murmur. Chest wall ribs nontender. Abdomen soft nontender. No peritoneal signs. No distention. Back nontender. No CVA tenderness. Moving all 4 extremities. 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 Dorsi plantarflexion intact. Nontender. No edema. Neurologically she is awake and alert with no focal motor deficits. Const Vital Signs: 01/13/24 18:23 01/13/24 18:33 01/13/24 19:39 Temperature 96.8 F L Temperature Source Temporal Pulse Rate 71 67 Respiratory Rate 16 20 H Blood Pressure 113/82 H 99/70 90/64 Blood Pressure Mean 92 79 72 Pulse Ox 100 98 Oxygen Delivery Method Room Air 01/13/24 20:00 01/13/24 21:00 01/13/24 22:00 Temperature Temperature Source Pulse Rate 69 65 65 Respiratory Rate 11 L 11 L 18 Blood Pressure 90/62 97/58 L 93/65 Blood Pressure Mean 71 71 74 Pulse Ox 99 100 95 Oxygen Delivery Method Room Air Room Air Positive well nourished and well developed; Negative for obese, cachectic, contractures or unkempt General Appearance ED: well developed and NAD; Negative for unkempt, cachectic, contractures, cyanotic, diaphoretic or pallor Nutritional Appearance: Negative for cachectic or obese HEENT Reports dry mucous membranes; Denies moist mucous membranes Negative for trauma or tenderness Mouth ED: Yes dry mucous membranes Mouth: dry mucous membranes Eyes EOMs intact bilaterally Neck no lymphadenopathy, supple and no JVD General: Negative for tenderness Lymph Lymphatic: Negative for other Chest Wall inspection of chest normal and palpation of chest normal Resp normal respiratory effort and clear to auscultation bilaterally Effort and Inspection: Negative for retractions Auscultation: Negative for rales, rhonchi, wheezes or diminished lung sounds Cardio regular rate, regular rhythm, S1 normal heart sound, S2 normal heart sound and no murmurs Palpation: Negative for palpable S3 or palpable S4 Rate: Negative for bradycardia, tachycardic or other Rhythm: Negative for abnormal rhythm GI normal to inspection, nondistended, normoactive bowel sounds, non-tender and non-distended Inspection: Negative for abdominal distention Auscultation: normoactive bowel sounds Palpation: soft; Negative for tender, guarding, splenomegaly, mass or rebound tenderness present Back/Spine no CVA tenderness Extremity normal to inspection General Extremety ED: Negative for edema or tenderness General Extremity: Negative for edema Neuro oriented x3 and CN's II-XII intact bilaterally Sensorium / Orientation: alert; Negative for orientation impaired, lethargic or stuporous Motor Exam: strength 5/5 throughout; Negative for general weakness or strength abnormal Psych mental status grossly normal Appearance: Negative for unkempt Attitude: No agitated Mood & Affect: Negative for depressed or anxious Skin no rashes or lesions noted and no wounds General Skin Exam: Negative for jaundice or pallor Lesions: No lesion noted Rashes: No rashes noted Trauma: Negative for abrasion Wounds: Negative for wounds noted MDM MDM MDM Narrative Medical decision making narrative: 38-year-old female [place] most likely from dehydration. Should be treated with a liter normal saline. Zofran for nausea. She is being evaluated by her urologist in [place] for recurrent kidney stones and does not want any CAT scan imaging at this time. Clinically she does not act like an acute kidney stone. IV fluids and labs to be obtained. I do not think this was a cardiac event. Clinically I doubt she is significantly anemic. Repeat exam patient is doing well at 8:50 PM. However her blood pressure is only 99/51. She has a UTI. She will get a second liter of saline. IV Rocephin. And a CT to the history of kidney stones to rule out she did not have a stone with infection and obstruction. Clinically she looks better and feels better. Repeat exam at 10:57 PM. Patient is doing better. She received a second liter of fluid. CAT scan showed no kidney stone or obstruction. There is an incidental finding of umbilical hernia. She received a dose of IV Rocephin. She be placed on Macrobid twice a day for a week. Outpatient follow-up. Urine culture was sent. History & Record Review Discussion w/independent historian: Patient Additional record(s) reviewed:: No prior records Lab Data Attestation: I reviewed the patient's lab results. Lab results narrative: CBC normal. White count of 10. H&H 14 and 44. Platelets 424. Electrolytes show a gap of 10. Normal BUN of 14 creatinine 1.2. Glucose 205. Troponin 3. UA is positive for nitrates and greater than 100 white cells and 2+ bacteria consistent with a UTI. Labs: Laboratory Results - last 24 hr 01/13/24 01/13/24 18:05 19:20 WBC 10.1 RBC 4.92 Hgb 14.9 Hct 44.6 MCV 90.7 MCH 30.3 MCHC 33.4 RDW Std Deviation 41.2 RDW Coeff of Drea 12.6 Plt Count 424 MPV 10.7 Immature Gran % (Auto) 0.300 Neut % (Auto) 38.1 L Lymph % (Auto) 51.6 H Petroleum % (Auto) 8.9 Eos % (Auto) 0.7 Baso % (Auto) 0.4 Absolute Neuts (auto) 3.9 Absolute Lymphs (auto) 5.23 H Nucleated RBC % 0 Sodium 136 Potassium 3.8 Chloride 103 Carbon Dioxide 23.0 Anion Gap 10 BUN 14 Creatinine 1.20 H Estim Creat Clear Calc 56.06 Est GFR (MDRD) Af Amer 64 Est GFR (MDRD) Non-Af 53 L BUN/Creatinine Ratio 11.7 Glucose 205 H Calcium 10.4 H Troponin I High Sens 3 Urine Color Yellow Urine Clarity Clear Urine pH 5.0 Ur Specific [place] 1.025 Urine Protein 30 H Urine Glucose (UA) Normal Urine Ketones 15 H Urine Occult Blood 10 H Urine Nitrite Positive H Urine Bilirubin 3 H Urine Urobilinogen 1 H Ur Leukocyte Esterase 100 H Urine RBC 0 SEEN Urine WBC >100 SEEN Ur Squamous Epith Cells 0-5 SEEN Urine Bacteria 2+ Urine Mucus 3+ Radiography Chest X-Ray - ED: 1 View, Read by ED Physician, Read by Radiologist, Heart, Lungs, Mediastinum, Bony Structures, No Acute Disease and Chronic Changes Diagnostic Testing: Clinical Impression(s) from Imaging Studies Chest X-Ray 01/13/24 18:46 IMPRESSION: Multiple bilateral calcifications in the lung huggins. Comparison to prior study will be helpful. If this is not available CT chest can evaluate. Electronically Signed: Nasir Call MD at 18:58 EDT , Abdomen/Pelvis CT 01/13/24 20:49 IMPRESSION: Umbilical hernia containing fat. Electronically Signed: Nasir Call MD at 21:31 EDT , Chest x-ray, portable, single view shows chronic calcifications of the chest normal cardiac silhouette. Most likely chronic changes. Outpatient follow-up as needed. Interpreted both by myself and the radiologist. Rhythm Strip Rhythm Strip: Sinus Rhythm Rate: 71 Ectopy: None EKG Initial EKG: Interpretation: Sinus Rhythm and No Acute Injury Pattern Comments: Normal sinus rhythm rate of 71 no acute signs of [place] or ischemia. Discharge Plan Triage Chief Complaint: Syncope ED Provider: Murray Carter Dx/Rx/DC Orders Clinical Impression: Near syncope, UTI (urinary tract infection) Instructions: ED Low Blood Pressure, All Causes, ED Cystitis Female Adult Prescriptions: New nitrofurantoin monohyd/m-cryst [Macrobid] 100 mg capsule 100 mg PO Q12H 7 Days Qty: 14 0RF Rx Instructions: must administer with a meal/food No Action promethazine [Phenergan] 25 MG/ML solution 25 mg IM Q6H PRN PRN (Reason: migraines) epinephrine 0.3 MG syringe 0.3 mg IM X1 PRN (Reason: Anaphylaxis) Qty: 1 0RF propranolol 160 mg capsule,extended release 24 hr 160 mg PO DAILY venlafaxine 150 MG capsule 300 mg PO DAILY Primary Care Provider: Fabien Spaulding Referrals: Fabien Spaulding, DO [Primary Care Provider] - As soon as possible Activity Restrictions/Additional Instructions: Plenty of fluids and rest. I would hold your blood pressure medication unless your blood pressures running higher than 120. Take the antibiotic twice a day. Follow-up with your doctor to ensure you are improving. Return if you are feeling worse. Print Language: Mongolian Disposition Disposition: Home, Self Care
--- NOTE | 2024-01-13 18:46 | RAD_ITS ---
EXAM: XR CHEST, 1 VIEW CLINICAL INDICATION: near syncope TECHNIQUE: Frontal view of the chest. COMPARISON: No relevant prior studies available. FINDINGS: LUNGS AND PLEURAL SPACES: Multiple bilateral calcifications in the lung huggins. Comparison to prior study will be helpful. No pneumothorax. No effusion. HEART: Unremarkable. Cardiac silhouette not enlarged. MEDIASTINUM: Central airways and mediastinal contour are unremarkable. BONES/JOINTS: Unremarkable. No acute fracture. SOFT TISSUES: Unremarkable. RAD/Chest 1 View (Portable) IMPRESSION: Multiple bilateral calcifications in the lung huggins. Comparison to prior study will be helpful. If this is not available CT chest can evaluate. Electronically Signed: Nasir Call MD at 18:58 EDT ,
[2024-01-13] MEDS: Ondansetron 4 MG/2 ML Vial IV (18:51)
[2024-01-13] MEDS: 0.9% Normal Saline (1000mL) 1,000 ML 1000 ML IV (18:51)
[2024-01-13 18:56] LABS: Absolute Lymphocyte Count 5.23 X10^3/uL (0.83-4.51); Absolute Neutrophil Count 3.9 X10^3/uL (2.0-7.7); Basophil# 0.04 X10^3/uL; Basophil% 0.4 % (0-1); Eosinophil# 0.07 X10^3/uL; Eosinophils% 0.7 % (0-5); Hematocrit 44.6 % (37-47); Hemoglobin 14.9 g/dL (12.0-15.0); Lymphocyte # 5.23 X10^3/ul (0.83-4.51); Lymphocyte % 51.6 % (19-41); Mean Corp Hgb Conc 33.4 g/dL (32-36); Mean Corpuscular Hgb 30.3 pg (27.0-32.0); Mean Corpuscular Volume 90.7 fL (81-99); Mean Platelet Vol. 10.7 fl (6.2-12.0); Monocyte% 8.9 % (0-10); NRBC Flagged by Analyzer 0 % (0-5); Neutrophil # 3.87 X10^3/uL (2.7-7.7); Neutrophil % 38.1 % (47-70); POSITIVE DIFFERENTIAL YES; Platelet Count 424 K/mm3 (150-450); RBC Distribution Width CV 12.6 % (11.6-14.6); RBC Distribution Width SD 41.2 fl (35.1-43.9); Red Blood Count 4.92 M/mm3 (4.2-5.4); White Blood Count 10.1 K/mm3 (4.4-11.0)
[2024-01-13 19:18] LABS: Anion Gap 10 (5-15); BUN 14 mg/dL (7-18); BUN/Creat Ratio 11.7 RATIO (10-20); Calcium,Total 10.4 mg/dL (8.5-10.1); Chloride 103 mmol/L (98-107); EST Glomerular Filtration Rate 53 mL/min (>60); Est Glom Filt Rate - Afr Amer 64 mL/min (>60); Estimated Creatinine Clearance 56.06 ml/min; Glucose 205 mg/dL (74-106); Potassium 3.8 mmol/L (3.5-5.1); Sodium Level 136 mmol/L (136-145); Troponin-I HS 3 pg/mL (3.0-54.0)
[2024-01-13 19:32] LABS: Red Blood Cells-Urine 0 SEEN /hpf (0-5)
[2024-01-13 19:46] LABS: Color, Urine Yellow (Yellow); Glucose, Dipstick Normal (Normal); Ketone-Dipstick 15 mg/dl (Negative); Leukocyte Esterase-Dipstick 100 /ul (Negative); Nitrite-Dipstick Positive (Negative); Occult Blood-Urine 10 /ul (Negative); Protein-Dipstick 30 mg/dl (Negative); Specific Gravity, Urine 1.025 (1.002-1.030); Urine Clarity Clear (Clear); Urine Urobilinogen 1 mg/dl (Normal)
[2024-01-13 19:53] LABS: Urine Bilirubin Dipstick 3 mg/dL (Negative)
[2024-01-13 20:02] LABS: Bacteria 2+ /hpf (None Seen); Mucous, Urine 3+ /hpf (<or=2+); Squamous Epithelial Cells - UA 0-5 SEEN /hpf (5-10); White Blood Cells >100 SEEN /hpf (0-5)
[2024-01-13 20:04] LABS: Differential Indicated SCAN CRITERIA MET
--- NOTE | 2024-01-13 20:49 | CT_ITS ---
EXAM: CT ABDOMEN AND PELVIS WITHOUT INTRAVENOUS CONTRAST CLINICAL INDICATION: Left flank pain and UTI TECHNIQUE: Helically acquired images were obtained of the abdomen and pelvis without intravenous contrast. This CT exam was performed using one or more of the following dose reduction techniques: automated exposure control, adjustment of the mA and/or kV according to patient size, and/or use of iterative reconstruction technique. RADIATION DOSE: CTDIvol = 6.57 mGy, DLP = 328.19 mGy-cm COMPARISON: 02/24/2021 FINDINGS: LOWER THORAX: Unremarkable. Lung bases are clear. No cardiomegaly. No significant pericardial effusion. ABDOMEN: LIVER: Unremarkable. Homogeneous. GALLBLADDER AND BILE DUCTS: Cholecystectomy changes. No intra- or extrahepatic biliary ductal dilation. PANCREAS: Unremarkable. No focal cystic mass. SPLEEN: Unremarkable. Normal size without focal cystic or solid mass. ADRENALS: Unremarkable. No nodules. KIDNEYS AND URETERS: Unremarkable. Normal renal size and position. No hydronephrosis. STOMACH AND BOWEL: Unremarkable. No stomach or bowel distention. No focal inflammatory change. PELVIS: APPENDIX: Appendectomy changes. BLADDER: Unremarkable. REPRODUCTIVE: Hysterectomy changes.. ABDOMEN and PELVIS: INTRAPERITONEAL SPACE: Unremarkable. No ascites or other fluid collection. No free air. BONES/JOINTS: Unremarkable. No suspicious lytic or blastic abnormality. SOFT TISSUES: Umbilical hernia containing fat. VASCULATURE: Unremarkable. Abdominal aorta is non-dilated. LYMPH NODES: Unremarkable. No enlarged lymph nodes. CT/Abdomen/Pelvis without Cont IMPRESSION: Umbilical hernia containing fat. Electronically Signed: Nasir Call MD at 21:31 EDT ,
[2024-01-13] MEDS: 0.9% Normal Saline (1000mL) 1,000 ML 999 ML IV (21:08)
[2024-01-13] MEDS: Ceftriaxone 1 GM/50 ML BAG IV (21:08)
== END 2024-01-13 23:08 | disposition home or self-care (01) ==
PROVIDERS: Emergency Provider Emergency Medicine; PCP Family Medicine; Visit Provider Emergency Medicine
DX: R55 Syncope and collapse (principal); N39.0 Urinary tract infection, site not specified; N20.0 Calculus of kidney; I10 Essential (primary) hypertension; K42.9 Umbilical hernia without obstruction or gangrene; F17.290 Nicotine dependence, other tobacco product, uncomplicated
CPT/HCPCS: 71045; 74176; 80048; 81001; 84484; 85025; 87086; 87088; 93005; 96361; 96365; 96375; 99284; A4216; J2405